=== PATIENT | female | born 1940 | race Caucasian/White ===

== ENCOUNTER → 2019-09-06 | Outpatient (CLI) | payer MEDICARE, OTHER ==
[2019-09-06 12:57] LABS: Stool Occult Bld Immuno 1 Negative (NEGATIVE); Stool Occult Bld Immuno 2 Negative (NEGATIVE); Stool Occult Bld Immuno 3 Negative (NEGATIVE)
== END | disposition home or self-care (01) ==
LOC: LAB EV 06:00
PROVIDERS: Nurse Practitioner Family
DX: D64.9 Anemia, unspecified (principal)
CPT/HCPCS: 82274

== ENCOUNTER 2020-03-15 16:18 | Inpatient (IN) | payer MEDICARE, OTHER ==
[~2020-03-15] VITALS: Ht 160 cm; Wt 65.0 kg
[2020-03-20] MEDS ORDERED: PRED1 PO (16:01)
[2020-03-20] MEDS ORDERED: CALCIUM CIT 311 EACH PO (16:01)
[2020-03-20] MEDS ORDERED: ALEN70 PO (16:02)
[2020-03-20] MEDS ORDERED: EUTHYROX125 MCG PO (16:02)
[2020-03-24] MEDS ORDERED: FISH OIL 1,2001 EAC7 (06:33)
[2020-03-24] MEDS ORDERED: MULTIVITAMINS1 EAC3 PO (06:34)
== END 2020-03-24 18:07 | disposition home or self-care (01) | DRG 627 ==
LOC: SURS 03-24 06:02 → PRE IP 03-24 07:30 → SURS 03-24 12:40
PROVIDERS: ADMIT Otolaryngology
PROC: 0GTH0ZZ Resection of Right Thyroid Gland Lobe, Open Approach (ICD-10-PCS; principal; 2020-03-24 07:30)
PROC: 07B10ZZ Excision of Right Neck Lymphatic, Open Approach (ICD-10-PCS; 2020-03-24 07:30)
DX: C73 Malignant neoplasm of thyroid gland (principal)
CPT/HCPCS: 86850; 86900; 86901; A9270; J1720; J2370; J2405; J2704; J2765; J3010; J7120

== ENCOUNTER 2020-08-09 00:10 | Day surgery (SDC) | payer MEDICARE, OTHER ==
[~2020-08-09 00:10] MED LIST: ALEN70 PO; CALCIUM CIT 311 EACH PO; EUTHYROX125 MCG PO; FISH OIL 1,2001 EAC7; MULTIVITAMINS1 EAC3 PO; PRED1 PO
[2020-08-09] MEDS ORDERED: IBUP400 PO (09:56)
[2020-08-09] MEDS ORDERED: excedrin migraine (09:56)
[2020-08-09] MEDS ORDERED: MULVITA PO (09:58)
--- NOTE | 2020-08-09 09:59 | NUR ---
PT MONTIORED FOR 15 MINUTES AFTER INJECTION. NO S/S OF RXN.
== END 2020-08-09 09:47 | disposition home or self-care (01) ==
LOC: ATC 00:10
DX: C73 Malignant neoplasm of thyroid gland (principal)
CPT/HCPCS: 96372; J3240

== ENCOUNTER 2020-08-10 00:06 | Day surgery (SDC) | payer MEDICARE, OTHER ==
[~2020-08-10 00:06] MED LIST changes: +IBUP400 PO; +MULVITA PO; +excedrin migraine
== END 2020-08-10 09:30 | disposition home or self-care (01) ==
LOC: ATC 00:06
DX: C73 Malignant neoplasm of thyroid gland (principal); E89.0 Postprocedural hypothyroidism; E78.5 Hyperlipidemia, unspecified; K21.9 Gastro-esophageal reflux disease without esophagitis; Z90.710 Acquired absence of both cervix and uterus; Z78.0 Asymptomatic menopausal state; Z79.899 Other long term (current) drug therapy; Z88.7 Allergy status to serum and vaccine
CPT/HCPCS: 96372; J3240

== ENCOUNTER 2020-08-16 00:14 | Day surgery (SDC) | payer MEDICARE, OTHER | END 2020-08-16 09:52 | disposition home or self-care (01) | LOC: ATC 00:14 | DX: C73 Malignant neoplasm of thyroid gland (principal); E89.0 Postprocedural hypothyroidism; E78.5 Hyperlipidemia, unspecified; K21.9 Gastro-esophageal reflux disease without esophagitis; Z90.710 Acquired absence of both cervix and uterus; Z78.0 Asymptomatic menopausal state; Z79.899 Other long term (current) drug therapy; Z88.7 Allergy status to serum and vaccine | CPT/HCPCS: 96372; J3240 ==

== ENCOUNTER 2020-08-17 00:07 | Day surgery (SDC) | payer MEDICARE, OTHER | END 2020-08-17 10:06 | disposition home or self-care (01) | LOC: ATC 00:07 | DX: C73 Malignant neoplasm of thyroid gland (principal); E89.0 Postprocedural hypothyroidism; E78.5 Hyperlipidemia, unspecified; K21.9 Gastro-esophageal reflux disease without esophagitis; Z90.710 Acquired absence of both cervix and uterus; Z78.0 Asymptomatic menopausal state; Z79.899 Other long term (current) drug therapy; Z88.7 Allergy status to serum and vaccine | CPT/HCPCS: 96372; J3240 ==

== ENCOUNTER → 2021-04-10 | Outpatient (CLI) | payer MEDICARE, OTHER | END | disposition home or self-care (01) | LOC: LAB SHORT 16:15 | DX: N39.0 Urinary tract infection, site not specified (principal) | CPT/HCPCS: 87077; 87086; 87186 ==

== ENCOUNTER → 2024-01-14 | Outpatient (CLI) | payer MEDICARE, OTHER ==
[2024-01-14 10:02] LABS: Source, Urine Clean Catch
[2024-01-14 12:29] LABS: Appearance, Urine Clear (Clear); Bilirubin, Urine Neg (Neg); Blood, Urine Neg (Neg); Color, Urine Yellow (P-Yellow); Glucose Qualitative, Urine Neg (Neg); Ketones, Urine Neg (Neg); Leukocyte Esterase, Urine 2+ (Neg); Nitrite, Urine Pos (Neg); Protein, Urine Neg (Neg); Urobilinogen, Urine NORM (Normal)
[2024-01-14 12:36] LABS: Bacteria Many /hpf; Red Blood Cells, Urine Not Seen /hpf (0-2); Squamous Epithelial Cells Rare /hpf (Few)
== END ==
LOC: LAB 10:00 → LAB SHORT 10:00
PROVIDERS: Physician Assistant
DX: R30.0 Dysuria (principal)
CPT/HCPCS: 81001; 87077; 87086; 87186